=== PATIENT | female | born 1990 | race Caucasian/White ===

== ENCOUNTER 2018-05-22 13:34 | Inpatient (IN) ==
[~2018-05-22 13:34] MED LIST: VENOFER IV ONE
[2018-05-22 13:51] VITALS: BMI 24.7
[2018-05-22 14:11] LABS: BASOPHILS % (AUTO) 0.4 % (0.2-1.0); EOSINOPHILS # (AUTO) 0.1 x10^3/uL (0.0-0.2); EOSINOPHILS % (AUTO) 1.1 % (0.9-2.9); HEMATOCRIT 30.8 % (36.0-47.0); HEMOGLOBIN 10.2 g/dL (12.0-16.0); LYMPHOCYTES # (AUTO) 1.3 X10^3/uL (1.3-2.9); LYMPHOCYTES % (AUTO) 12.5 % (21.0-51.0); MEAN CORPUSCULAR HEMOGLOBIN 29.3 pg (27.0-34.0); MEAN CORPUSCULAR HGB CONC 33.3 g/dL (33.0-35.0); MEAN PLATELET VOLUME 8.7 fL (7.4-11.0); MONOCYTES # (AUTO) 0.6 x10^3/uL (0.3-0.8); MONOCYTES % (AUTO) 6.1 % (0.0-13.0); NEUTROPHILS # (AUTO) 8.1 x10^3/uL (2.2-4.8); NEUTROPHILS % (AUTO) 79.9 % (42.0-75.0); PLATELET COUNT 174 X10^3/uL (150.0-450.0); RED CELL DISTRIBUTION WIDTH 17.5 % (11.6-16.5); WHITE BLOOD COUNT 10.1 X10^3/uL (3.6-10.0)
[2018-05-22 14:15] LABS: AMNISURE ROM TEST NO MEMBRANES RUPTURE (NO RUPTURE)
[2018-05-22] MEDS ORDERED: D5 1/2 NS 1000 ML 1,000 ML IV ONE (14:18)
[2018-05-22] MEDS ORDERED: D5 LR 1000 ML 0 ML IV ONE (14:18)
[2018-05-22] MEDS ORDERED: D5 1/2 NS 1L W PITOCIN 20 UNITS/L 20 UNITS/1,000 ML BAG IV ONE (14:18)
[2018-05-22] MEDS ORDERED: D5LR 1L W PITOCIN 10 UNITS/L 10 UNITS/1,000 ML BAG IV ONE (14:18)
[2018-05-22 14:21] LABS: ALANINE AMINOTRANSFERASE 21 Units/L (12-78); ALBUMIN 2.4 g/dL (3.4-5.0); ALKALINE PHOSPHATASE 225 Units/L (46-116); ASPARTATE AMINO TRANSFERASE 21 Units/L (15-37); BLOOD UREA NITROGEN 9 mg/dL (7-18); CALCIUM 8.7 mg/dL (8.5-10.1); CARBON DIOXIDE 27.7 mmol/L (21-32); CHLORIDE 104 mmol/L (98-107); CREATININE 0.45 mg/dL (0.55-1.02); SODIUM 139 mmol/L (136-145); TOTAL PROTEIN 6.3 g/dL (6.4-8.2); eGFR NON BLACK RACES > 60 (>60)
[2018-05-22] MEDS ORDERED: PITOCIN IVP ONE (14:28)
[2018-05-22] MEDS ORDERED: NUBAIN INJ 200 MG VIAL MULTIDOSE IVP PRN (14:28)
[2018-05-22] MEDS ORDERED: PHENERGAN INJ 25 MG IV PRN ×2 (14:28→15:57)
[2018-05-22] MEDS ORDERED: D5LR 1L W PITOCIN 10 UNITS/L 10 UNITS/1,000 ML BAG IV PRN (14:28)
[2018-05-22] MEDS ORDERED: REGLAN INJ 10 MG VIAL IVP PRN (14:28)
[2018-05-22] MEDS ORDERED: D5 1/2 NS 1000 ML 1,000 ML IV SCH (15:00)
[2018-05-22] MEDS ORDERED: MOTRIN TAB 800 MG PO ONE (15:35)
[2018-05-22] MEDS ORDERED: MOTRIN TAB 800 MG PO PRN ×2 (15:57→15:58)
[2018-05-22] MEDS ORDERED: DERMOPLAST SPRAY TOP PRN (15:58)
[2018-05-22] MEDS ORDERED: D5 1/2 NS 1000 ML 1,000 ML with PITOCIN 20 UNITS IV SCH ×2 (16:00)
[2018-05-22] MEDS ORDERED: DERMOPLAST SPRAY ONE (16:18)
[2018-05-22] MEDS ORDERED: NORCO 10/325 TAB ONE (17:29)
[2018-05-22] MEDS: NORCO 10/325 TAB PO PRN (17:30)
[2018-05-22] MEDS ORDERED: NS 100 ML IV 100 ML IV ONE (20:06)
[2018-05-22] MEDS: NS 100 ML IV 100 ML with VENOFER 400 MG IV SCH ×2 (20:32)
[2018-05-22] MEDS: MOTRIN TAB 800 MG PO SCH (21:21)
[2018-05-23] MEDS: NORCO 10/325 TAB PO PRN ×3 (01:00→17:45)
[2018-05-23] MEDS: D5 1/2 NS 1000 ML 1,000 ML IV SCH ×5 (04:39→17:35)
[2018-05-23 05:27] LABS: HEMATOCRIT 31.1 % (36.0-47.0); HEMOGLOBIN 10.2 g/dL (12.0-16.0)
[2018-05-23] MEDS: MOTRIN TAB 800 MG PO SCH ×3 (06:44→21:00)
[2018-05-23] MEDS: NS 100 ML IV 100 ML with VENOFER 400 MG IV SCH ×2 (09:20)
[2018-05-23] MEDS ORDERED: REQUIP PO SCH (10:00)
[2018-05-23] MEDS ORDERED: REQUIP PO PRN (10:26)
[2018-05-23] MEDS ORDERED: REQUIP PO ONE (10:52)
[2018-05-24] MEDS: D5 1/2 NS 1000 ML 1,000 ML IV SCH ×3 (01:00→08:21)
[2018-05-24] MEDS: NORCO 10/325 TAB PO PRN ×2 (01:13→07:32)
[2018-05-24] MEDS: MOTRIN TAB 800 MG PO SCH (06:04)
[2018-05-24 08:20] VITALS: BP 100/57
== END 2018-05-24 11:40 | disposition home or self-care (01) | DRG 807 ==
LOC: ER 13:35 → LD 14:14 → MED/SURG 16:24
PROVIDERS: ADMIT Obstetrics & Gynecology Obstetrics; ATTEND Obstetrics & Gynecology Obstetrics
DX: Z37.0 Single live birth; O80 Encounter for full-term uncomplicated delivery; Z3A.38 38 weeks gestation of pregnancy
CPT/HCPCS: 36415; 59409; 80053; 82607; 82728; 82746; 83540; 84112; 84466; 85014; 85018; 85025; 86592; 86850; 86900; 86901; 96365; 99284; A4216; A4222; J1756; J2590; J7050; J7121; S5010